=== PATIENT | male | born 1955 | race American Indian/Alaskan Native ===

== ENCOUNTER 2019-11-18 08:35 | Outpatient (CLI) | payer BC ==
--- NOTE | 2019-11-18 09:25 | XRay Report ---
LUMBAR SPINE 3 VIEWS INDICATION: LOWER BACK PAIN M54.5. COMPARISON: None. IMPRESSION: Normal bone mineralization. There is suggestion of minimal levocurvature of the lumbar spine. Mild disc space narrowing and endplate spurring are identified at L1-2 and L5-S1. The remainin g disc levels and facet joints are unremarkable. The visualized sacrum and SI joints are within mikayla l limits. No acute osseous or soft tissue abnormality. Signer Name: Flip Ndiaye Jr, MD Signed: 11/18/2019 9:20 AM Workstation Name: [id number]
== END 2019-11-18 08:36 | disposition home or self-care (01) ==
LOC: SPVIMAG 08:35
PROVIDERS: ATTEND Internal Medicine
DX: M46.07 Spinal enthesopathy, lumbosacral region (principal)
CPT/HCPCS: 72100

== ENCOUNTER 2020-12-25 12:09 | Outpatient (CLI) | payer BC, MEDICARE ==
--- NOTE | 2020-12-25 13:41 | XRay Report ---
Lumbar spine complete 7 views INDICATION: Chronic left-sided low back pain. IMPRESSION: Mild multilevel discogenic and facet arthropathy with perhaps mild narrowing of the L5-S1 neural foramina. No severe neural foraminal stenosis is appreciated. The lumbar spinal alignment is normal. Signer Name: Robert Bass MD Signed: 12/25/2020 1:36 PM Workstation Name: [id number]
--- NOTE | 2020-12-25 13:43 | XRay Report ---
CHEST 2 VIEWS INDICATION / CLINICAL INFORMATION: CHRONIC LEFT-SIDED THORACIC BACK PAIN. FINDINGS: SUPPORT DEVICES: None. HEART / MEDIASTINUM: No significant abnormality. LUNGS / PLEURA: No significant pulmonary or pleural abnormality. No pneumothorax. ADDITIONAL FINDINGS: No significant additional findings. IMPRESSION: 1. No acute findings. Signer Name: Robert Bass MD Signed: 12/25/2020 1:37 PM Workstation Name: [id number]
--- NOTE | 2020-12-25 13:46 | XRay Report ---
Thoracic spine 3 views INDICATION: Left back pain IMPRESSION: Slight exaggerated kyphosis of the thoracic spine. Mild multilevel discogenic type degene rative changes of the mid thoracic spine without significant neural foraminal stenosis on the lateral view. Signer Name: Robert Bass MD Signed: 12/25/2020 1:41 PM Workstation Name: [id number]
== END 2020-12-25 12:10 | disposition home or self-care (01) ==
LOC: SPVIMAG 12:09
PROVIDERS: ATTEND Internal Medicine
DX: M47.814 Spondylosis without myelopathy or radiculopathy, thoracic region (principal); M40.294 Other kyphosis, thoracic region; M47.817 Spondylosis without myelopathy or radiculopathy, lumbosacral region; M54.6 Pain in thoracic spine
CPT/HCPCS: 71046; 72072; 72110

== ENCOUNTER 2021-09-30 08:10 | Outpatient (CLI) | payer BC ==
--- NOTE | 2021-09-30 08:47 | XRay Report ---
LEFT SHOULDER 3 VIEWS INDICATION: LEFT SHOULDER PAIN. COMPARISON: None. IMPRESSION: No acute osseous or soft tissue abnormality. Minimal to mild osteoarthritic changes a re identified at the AC joint and glenohumeral joint. Signer Name: Flip Ndiaye Jr, MD Signed: 09/30/2021 8:43 AM Workstation Name: [id number]
== END 2021-09-30 08:11 | disposition home or self-care (01) ==
LOC: XRAY 08:10
PROVIDERS: ATTEND Nurse Practitioner Family
DX: M19.012 Primary osteoarthritis, left shoulder (principal)